=== PATIENT | female | born 1995 | race African-American/Black ===

== ENCOUNTER 2020-04-11 06:00 | Inpatient (IN) ==
[2020-04-11] MEDS ORDERED: BETADINE SOLN ONE (06:31)
[2020-04-11] MEDS ORDERED: D5 1/2 NS 1000 ML 1,000 ML IV ONE (06:31)
[2020-04-11] MEDS ORDERED: PITOCIN ONE (06:31)
[2020-04-11] MEDS ORDERED: D5 1/2 NS 1L W PITOCIN 20 UNITS/L 20 UNITS/1,000 ML BAG IV ONE (06:32)
[2020-04-11] MEDS ORDERED: D5LR 1L W PITOCIN 10 UNITS/L 10 UNITS/1,000 ML BAG IV ONE (06:32)
[2020-04-11] MEDS ORDERED: NS 100 ML IV 100 ML IV ONE ×3 (06:40→15:08)
[2020-04-11] MEDS: AMPICILLIN VIAL 1 GRAM 1 G in NS 50 ML IV + SPIKE MINIBAG* 50 ML IV SCH ×3 (06:50→13:42)
[2020-04-11] MEDS: AMPICILLIN VIAL 2 GRAM ONE ×3 (06:50→07:22)
--- NOTE | 2020-04-11 07:07 | DR.OB ---
OB Quick Note - Assessment/Plan Assessment/Plan: L&D 04/11/20 at 6:55am S-No complaint. O-Afebrile,VSS AIQ=660 with good LTV, +accel, no decel. CTX=none CVX=2cm/50%/-1/VTX AROM with clear fluid. IUPC and FSE placed. A-IUP at 39 0/7 weeks for induction +GBS P-Begin pitocin induction IV ABX in labor for +GBS Anticipate
[2020-04-11] MEDS ORDERED: MORPHINE SULFATE INJ 2 MG INJ IVP PRN (07:17)
[2020-04-11] MEDS ORDERED: D5LR 1L W PITOCIN 10 UNITS/L 10 UNITS/1,000 ML BAG IV PRN (07:17)
[2020-04-11] MEDS ORDERED: PHENERGAN INJ 25 MG IM PRN ×2 (07:17→17:04)
[2020-04-11] MEDS ORDERED: PITOCIN IVP ONE (07:17)
[2020-04-11] MEDS ORDERED: NUBAIN INJ 200 MG VIAL MULTIDOSE IVP PRN (07:17)
[2020-04-11] MEDS ORDERED: REGLAN INJ 10 MG VIAL IVP PRN (07:17)
[2020-04-11] MEDS ORDERED: D5 1/2 NS 1000 ML 1,000 ML IV SCH (07:17)
[2020-04-11] MEDS ORDERED: AMPICILLIN VIAL 2 GRAM 2 G in NS 100 ML IV + SPIKE MINIBAG* 100 ML IV SCH (07:17)
[2020-04-11] MEDS ORDERED: STADOL INJ IVP PRN (07:25)
[2020-04-11] MEDS ORDERED: AMPICILLIN VIAL 1 GRAM ONE ×2 (07:45→15:08)
[2020-04-11] MEDS ORDERED: STADOL INJ ONE (08:29)
[2020-04-11] MEDS ORDERED: FENTANYL INJ 100 mcg ONE (08:35)
[2020-04-11] MEDS ORDERED: LR 1000 ML IV 1,000 ML IV ONE (08:35)
[2020-04-11] MEDS: FENTANYL 2 mcg/mL-ROPIV 0.1%-NS EPIDURAL 200 ML EPI ONE (09:48)
[2020-04-11] MEDS: VSL#3 PO SCH (10:24)
[2020-04-11] MEDS ORDERED: ZOFRAN INJ 4 MG VIAL IVP ONE (12:17)
--- NOTE | 2020-04-11 12:18 | DR.OB ---
OB Quick Note - Assessment/Plan Assessment/Plan: L&D 04/11/20 at 12:15pm Pitocin=6mu/min. Ampicillin S-No complaint. s/p epidural. O-Afebrile,VSS IRY=897 with good LTV, +accel, no decel. CTX=q 1 1/2 to 3 min., about 45-55mmHg CVX=3cm/75%/0 A-IUP at 39 0/7 for induction +GBS P-Cont. pitocin induction and ABX in labor Anticipate
[2020-04-11] MEDS ORDERED: BENADRYL CAP/TAB 25 MG PO PRN (12:47)
[2020-04-11] MEDS ORDERED: BENADRYL CAP/TAB 25 MG PO ONE (12:50)
--- NOTE | 2020-04-11 17:03 | DR.OB ---
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 Head delivered over intact perineum. Nuchal cord x 1 reduced. Nose and mouth bulb suctioned. Body delivered over intact perineum. Cord clamped x 2 and cut. Infant handed to attendant. Cord sent for gases. Placenta delivered spontaneously / intact / 3 vessel cord. No CVX / vaginal / perineal tears. Viable male infant, VTX/OA, wt=5'13" and 8/9, stable to NBN. Mother stable to RR. [id number]=[id number].
[2020-04-11] MEDS ORDERED: MOTRIN TAB 800 MG PO PRN (17:04)
[2020-04-11] MEDS ORDERED: MOTRIN TAB 800 MG PO ONE (17:20)
[2020-04-11] MEDS ORDERED: ADACEL or BOOSTRIX TDaP VACCINE IM ONE (17:44)
[2020-04-11] MEDS ORDERED: AMBIEN PO PRN (17:44)
[2020-04-11] MEDS ORDERED: MILK OF MAGNESIA PO PRN (17:44)
[2020-04-11] MEDS ORDERED: DERMOPLAST PAIN RELIEF SPRAY TOP PRN (17:44)
[2020-04-11] MEDS: D5 1/2 NS 1000 ML 1,000 ML with PITOCIN 20 UNITS IV SCH ×2 (20:12)
[2020-04-12 04:25] LABS: HEMATOCRIT 29.1 % (36.0-47.0); HEMOGLOBIN 9.7 g/dL (12.0-16.0)
[2020-04-12] MEDS: D5 1/2 NS 1000 ML 1,000 ML with PITOCIN 20 UNITS IV SCH ×4 (05:43→15:32)
[2020-04-12] MEDS ORDERED: DEPO-PROVERA CONTRACEPTIVE INJ IM ONE (07:27)
[2020-04-12] MEDS: VSL#3 PO SCH (08:57)
[2020-04-12] MEDS ORDERED: PRENATAL PLUS PO SCH (09:00)
[2020-04-12] MEDS ORDERED: ADACEL or BOOSTRIX TDaP VACCINE IM ONE (16:04)
[2020-04-12 16:49] VITALS: BP 113/83
== END 2020-04-12 19:05 | disposition home or self-care (01) | DRG 806 ==
LOC: LD 06:24 → MED/SURG 17:41
PROVIDERS: ADMIT Specialist; ATTEND Specialist
DX: Z01.818 Encounter for other preprocedural examination; O99.324 Drug use complicating childbirth; O98.311 Other infections with a predominantly sexual mode of transmission complicating pregnancy, first trimester; B95.1 Streptococcus, group B, as the cause of diseases classified elsewhere; O99.824 Streptococcus B carrier state complicating childbirth; O98.12 Syphilis complicating childbirth; Z3A.39 39 weeks gestation of pregnancy; Z23 Encounter for immunization; Z37.0 Single live birth